=== PATIENT | female | born 1980 | race African-American/Black ===

== ENCOUNTER 2017-11-07 16:25 | Emergency (ER) | payer OTHER | END 2017-11-07 19:25 | disposition left against medical advice (07) | LOC: ERS 16:25 | DX: M54.5 Low back pain (principal); I45.6 Pre-excitation syndrome | CPT/HCPCS: 99283 ==

== ENCOUNTER 2017-11-09 09:52 | Emergency (ER) | payer OTHER ==
[2017-11-09] MEDS ORDERED: Dexamethasone 4 mg/ml Vial ONE (11:07)
[2017-11-09] MEDS ORDERED: Ketorolac Tromethamine 30 MG/ML VIAL ONE (11:07)
== END 2017-11-09 11:20 | disposition home or self-care (01) ==
LOC: ERS 09:52
DX: M54.5 Low back pain (principal)
CPT/HCPCS: 96372; J1100; J1885

== ENCOUNTER 2018-01-22 12:43 | Emergency (ER) | payer OTHER, SELFPAY ==
[2018-01-22 13:11] LABS: Bilirubin Negative (Negative); Blood, Urine Negative (Negative); Clarity CLEAR (Clear); Glucose, Urine (Dipstick) Negative (Negative); Leukocyte Negative (Negative); Nitrite Negative (Negative); Protein, Urine (Dipstick) Trace mg/dL (Neg-Trace); Specific Gravity, Urine 1.031 (1.002-1.036); Urobilinogen 0.2 mg/dL (0.2-1.0)
[2018-01-22 13:15] LABS: #Eosinphils 0.2 thou/uL (0.0-0.7); #Lymphocytes 1.7 thou/uL (1.20-3.40); #Monocytes 0.3 thou/uL (0.11-0.59); %Basophils 1.1 % (0.0-1.0); %Eosinophils 3.7 % (0.0-10.0); %Lymphocytes 40.3 % (21.0-51.0); %Monocytes 7.8 % (0.0-10.0); Hemoglobin 13.6 g/dL (12.0-16.0); Mean Corpuscular HGB CONC 34.1 g/dL (32.0-36.0); Mean Corpuscular Volume 90.7 fl (81.0-99.0); Mean Platelet Volume 6.6 fL (7.4-10.4); Platelet Count 249 thou/uL (130-400); RBC Distribution Width 12.3 % (11.5-14.5); White Blood Cell (WBC) Count 4.2 thou/uL (4.8-10.8)
[2018-01-22 13:34] LABS: ALT (SGPT) 25 U/L (8-55); AST (SGOT) 20 U/L (5-34); Albumin 3.9 g/dL (3.5-5.0); Alkaline Phosphatase 45 U/L (40-150); Anion Gap 12 mmol/L (10-20); BUN (Urea Nitrogen) 19 mg/dL (7.0-18.7); Bilirubin, Total 0.2 mg/dL (0.2-1.2); Calc. Creatinine Clearance 0 mL/min (70-130); Calcium 9.2 mg/dL (7.8-10.44); Carbon Dioxide 26 mmol/L (22-29); Chloride 104 mmol/L (98-107); Estimated GFR-MDRD 69; Globulin 3.6 g/dL (2.4-3.5); Glucose 78 mg/dL (70-105); Potassium 4.3 mmol/L (3.5-5.1); Protein, Total 7.5 g/dL (6.0-8.3); Sodium 138 mmol/L (136-145)
--- NOTE | 2018-01-22 16:42 | RAD ---
THORACIC SPINE 3 VIEWS: Date: 01/22/18 HISTORY: Back pain. FINDINGS/IMPRESSION: No fracture, subluxation, or bony destruction is identified. POS: FREDRICK
== END 2018-01-22 15:35 | disposition home or self-care (01) ==
LOC: ERS 12:43
DX: R10.12 Left upper quadrant pain (principal); I49.9 Cardiac arrhythmia, unspecified; I45.6 Pre-excitation syndrome
CPT/HCPCS: 36415; 72072; 80053; 81003; 83690; 85025

== ENCOUNTER 2018-03-24 17:09 | Emergency (ER) | payer SELFPAY ==
[2018-03-24 17:33] LABS: Bilirubin Negative (Negative); Blood, Urine Small (Negative); Clarity CLOUDY (Clear); Glucose, Urine (Dipstick) Negative (Negative); Leukocyte Negative (Negative); Nitrite Negative (Negative); Protein, Urine (Dipstick) Negative (Neg-Trace); Specific Gravity, Urine 1.021 (1.002-1.036); Urobilinogen 0.2 mg/dL (0.2-1.0)
[2018-03-24 17:35] LABS: Bacteria/HPF None Seen HPF (None Seen); Hyaline Casts/LPF 0-3 HYALINE CAST LPF (0-3 Hyaline); Pathc Cast-AUWi Flag 0.14 (0-2.49); WBC/HPF 0-3 HPF (0-3)
[2018-03-24 17:37] LABS: Yeast-AUWi Flag 42.7 (0-25.0)
[2018-03-24 17:45] LABS: Yeast-All Forms None Seen HPF (None Seen)
[2018-03-24] MEDS ORDERED: Ketorolac Tromethamine 30 MG/ML VIAL ONE (18:48)
[2018-03-24] MEDS ORDERED: Cyclobenzaprine 10 MG TAB ONE (18:48)
[2018-03-24] MEDS ORDERED: Dexamethasone 10 MG/ML VIAL ONE (18:48)
--- NOTE | 2018-03-24 20:17 | RAD ---
LUMBAR SPINE THREE VIEWS: 03/24/18 HISTORY: Low back pain. FINDINGS/IMPRESSION: No compression fracture is seen. There is minimal retrolisthesis of L5 over S1. Focal sclerosis invol ving the inferior aspect of the L5 vertebral body is stable since 01/30/17. POS: MARY
== END 2018-03-24 20:38 | disposition home or self-care (01) ==
LOC: ERS 17:09
DX: S39.012A Strain of muscle, fascia and tendon of lower back, initial encounter (principal); I45.6 Pre-excitation syndrome; X50.9XXA Other and unspecified overexertion or strenuous movements or postures, initial encounter
CPT/HCPCS: 72100; 81003; 81015; 96372; J1100; J1885

== ENCOUNTER 2018-08-23 16:34 | Emergency (ER) | payer SELFPAY | END 2018-08-23 17:17 | disposition home or self-care (01) | LOC: ERS 16:34 | DX: M54.42 Lumbago with sciatica, left side (principal) | CPT/HCPCS: 99283 ==

== ENCOUNTER 2018-09-20 10:10 | Emergency (ER) | payer SELFPAY ==
--- NOTE | 2018-09-20 11:47 | RAD ---
LEFT SHOULDER: Comparison: None. History: Left shoulder pain for three days. FINDINGS: Three views of the left shoulder shows no evidence of acute fracture or dislocation. No degenerative changes are seen. IMPRESSION: Unremarkable exam. POS: [facility]
[2018-09-20] MEDS ORDERED: Dexamethasone 4 MG TAB ONE (13:05)
[2018-09-20] MEDS ORDERED: Ketorolac Tromethamine 60 MG/2 ML VIAL ONE (13:05)
[2018-09-20] MEDS ORDERED: Diazepam 5 MG TAB ONE (13:05)
[2018-09-20] MEDS ORDERED: Lidocaine 5% Patch TD SCH (14:15)
== END 2018-09-20 14:22 | disposition home or self-care (01) ==
LOC: ERS 10:10
DX: M62.838 Other muscle spasm (principal); I45.6 Pre-excitation syndrome
CPT/HCPCS: 96372; J1885; J8540

== ENCOUNTER 2019-01-10 20:50 | Emergency (ER) | payer OTHER, SELFPAY | END 2019-01-10 21:40 | disposition home or self-care (01) | LOC: ERS 20:50 | DX: G89.29 Other chronic pain (principal); M54.2 Cervicalgia; I45.6 Pre-excitation syndrome; F32.9 Major depressive disorder, single episode, unspecified | CPT/HCPCS: 99283 ==

== ENCOUNTER 2019-02-16 16:18 | Emergency (ER) | payer SELFPAY ==
[2019-02-16 17:25] LABS: #Basophils 0.1 thou/uL (0.0-0.2); #Eosinphils 0.1 thou/uL (0.0-0.7); #Lymphocytes 2.5 thou/uL (1.20-3.40); #Monocytes 0.4 thou/uL (0.11-0.59); #Neutrophils 3.4 thou/uL (1.40-6.50); %Basophils 0.8 % (0.0-1.0); %Eosinophils 1.6 % (0.0-10.0); %Lymphocytes 38.9 % (21.0-51.0); %Monocytes 6.1 % (0.0-10.0); %Neutrophils 52.6 % (42.0-75.0); Hemoglobin 12.6 g/dL (12.0-16.0); Mean Corpuscular HGB CONC 32.8 g/dL (32.0-36.0); Mean Corpuscular Volume 88.5 fL (78.0-98.0); Mean Platelet Volume 6.7 fL (7.4-10.4); Platelet Count 262 thou/uL (130-400); RBC Distribution Width 12.3 % (11.5-14.5); Red Blood Cell (RBC) Count 4.33 mill/uL (4.20-5.40); White Blood Cell (WBC) Count 6.5 thou/uL (4.8-10.8)
[2019-02-16 17:48] LABS: ALT (SGPT) 11 U/L (8-55); AST (SGOT) 15 U/L (5-34); Albumin 3.8 g/dL (3.5-5.0); Alkaline Phosphatase 43 U/L (40-150); Anion Gap 13 mmol/L (10-20); BUN (Urea Nitrogen) 19 mg/dL (7.0-18.7); Bilirubin, Total 0.2 mg/dL (0.2-1.2); Calc. Creatinine Clearance 0 mL/min (70-130); Calcium 9.3 mg/dL (7.8-10.44); Carbon Dioxide 23 mmol/L (22-29); Chloride 107 mmol/L (98-107); Estimated GFR-MDRD 65; Globulin 3.3 g/dL (2.4-3.5); Glucose 106 mg/dL (70-105); Lipase 52 U/L (8-78); Protein, Total 7.1 g/dL (6.0-8.3); Sodium 139 mmol/L (136-145)
[2019-02-16 18:03] LABS: Bilirubin Negative (Negative); Blood, Urine Negative (Negative); Clarity CLEAR (Clear); Glucose, Urine (Dipstick) Negative (Negative); Leukocyte Negative (Negative); Nitrite Negative (Negative); Protein, Urine (Dipstick) Negative (Neg-Trace); Specific Gravity, Urine 1.026 (1.002-1.036); Urobilinogen 0.2 mg/dL (0.2-1.0); pH, Urine 5.5 (5.0-9.0)
[2019-02-16 18:05] LABS: Pregnancy Test - Urine (BHCG) Negative (Negative); Pregu Control Background? CLEAR/WHITE (CLR/WHITE); Pregu Control Bar Appear? YES (CONTROL BAR); Specific Gravity 1.026 (1.002-1.036)
[2019-02-18 20:01] LABS: Chlamydia by PCR Not Detected (NotDetected); GC by PCR Not Detected (NotDetected)
== END 2019-02-16 18:56 | disposition home or self-care (01) ==
LOC: ERS 16:18
DX: N76.0 Acute vaginitis (principal); I49.9 Cardiac arrhythmia, unspecified; I45.6 Pre-excitation syndrome
CPT/HCPCS: 36415; 80053; 81003; 81025; 83690; 85025; 87086; 87480; 87491; 87510; 87591; 87660; 99284

== ENCOUNTER 2019-03-19 09:06 | Emergency (ER) | payer OTHER, SELFPAY ==
--- NOTE | 2019-03-19 09:33 | RAD ---
Chest 2 views HISTORY: Chest pain. COMPARISON: 12/01/2007 and 03/28/2017. FINDINGS: Cardiac silhouette and pulmonary vasculature are unremarkable. Mediastinum is midline. Projecting over the lateral aspect of left apex is a rounded 0.6 cm nodular density not present on pr evious exams. Not well localized on the lateral view. No lobar consolidation, pleural fluid, or pneumothorax. IMPRESSION: Small nodule projecting over the lateral aspect of the left upper lobe on the frontal vie w. Possible extrinsic artifact. Please consider short-term follow-up chest radiograph in 4-6 months to evaluate for stability or reso lution. Code N.
== END 2019-03-19 11:40 | disposition home or self-care (01) ==
LOC: ERS 09:06
DX: B02.9 Zoster without complications (principal); I45.6 Pre-excitation syndrome
CPT/HCPCS: 71046

== ENCOUNTER 2019-08-22 13:18 | Emergency (ER) | payer OTHER ==
[2019-08-22 14:00] LABS: Bilirubin Negative (Negative); Blood, Urine Negative (Negative); Clarity Clear (Clear); Glucose, Urine (Dipstick) Normal (Negative); Leukocyte Negative Leu/uL (Negative); Nitrite Negative (Negative); Protein, Urine (Dipstick) Negative (Neg-Trace); Urobilinogen Normal mg/dL (Less than 2)
[2019-08-22 17:21] LABS: #Basophils 0.1 thou/uL (0.0-0.2); #Eosinphils 0.1 thou/uL (0.0-0.7); #Monocytes 0.4 thou/uL (0.11-0.59); #Neutrophils 3.4 thou/uL (1.40-6.50); %Basophils 0.8 % (0.0-1.0); %Eosinophils 2.3 % (0.0-10.0); %Lymphocytes 34.2 % (21.0-51.0); %Neutrophils 56.7 % (42.0-75.0); Hemoglobin 13.6 g/dL (12.0-16.0); Mean Corpuscular HGB CONC 33.4 g/dL (32.0-36.0); Mean Corpuscular Hemoglobin 29.7 pg (27.0-31.0); Mean Corpuscular Volume 88.8 fL (78.0-98.0); Mean Platelet Volume 6.8 fL (7.4-10.4); Platelet Count 247 thou/uL (130-400); RBC Distribution Width 12.4 % (11.5-14.5); Red Blood Cell (RBC) Count 4.58 mill/uL (4.20-5.40)
[2019-08-22] MEDS ORDERED: Morphine 4 MG/ML VIAL ONE (17:28)
[2019-08-22] MEDS ORDERED: Ondansetron PF 4 MG/2 ML Vial ONE (17:28)
[2019-08-22 17:43] LABS: ALT (SGPT) 9 U/L (8-55); AST (SGOT) 11 U/L (5-34); Alkaline Phosphatase 46 U/L (40-110); Anion Gap 12 mmol/L (10-20); BUN (Urea Nitrogen) 19 mg/dL (7.0-18.7); Bilirubin, Total 0.2 mg/dL (0.2-1.2); Calc. Creatinine Clearance 0 mL/min (70-130); Calcium 9.4 mg/dL (7.8-10.44); Carbon Dioxide 24 mmol/L (22-29); Chloride 105 mmol/L (98-107); Estimated GFR-MDRD 65; Globulin 3.3 g/dL (2.4-3.5); Glucose 95 mg/dL (70-105); Lipase 45 U/L (8-78); Potassium 4.1 mmol/L (3.5-5.1); Protein, Total 7.3 g/dL (6.0-8.3); Sodium 137 mmol/L (136-145)
[2019-08-22] MEDS ORDERED: ISOVUE-370 76%-LOCM 1 ML ONE (18:02)
--- NOTE | 2019-08-22 19:04 | CT ---
CT OF THE ABDOMEN AND PELVIS WITH CONTRAST: 08/22/19 COMPARISON: 12/03/15. HISTORY: Right sided abdominal pain for the past week. TECHNIQUE: Multiple contiguous axial images were obtained in a CT of the abdomen and pelvis with contrast. Coron al reformats were performed. FINDINGS: The right kidney is absent. The liver, gallbladder, adrenal glands, left kidney, spleen, and pancreas are unremarkable. No free air, free fluid, or stranding changes are seen in the abdomen or pelvis. T he patient appears to be status post hysterectomy as the uterus is not definitely seen. The large and small bowel are unremarkable. The appendix is normal. No abdominal or pelvic lymphadenopathy are see n. The osseous structures, visualized inferior thorax, and abdominal wall soft tissues are unremarkable. IMPRESSION: No evidence of acute intra-abdominal/pelvic abnormality. POS: C
== END 2019-08-22 20:00 | disposition home or self-care (01) ==
LOC: ERS 13:18
DX: R10.31 Right lower quadrant pain (principal); I49.9 Cardiac arrhythmia, unspecified; Z85.42 Personal history of malignant neoplasm of other parts of uterus; Z85.528 Personal history of other malignant neoplasm of kidney
CPT/HCPCS: 74177; 80053; 81003; 83690; 85025; 87086; 96361; 96374; 96375; J2270; J2405; Q9966

== ENCOUNTER 2019-11-29 13:16 | Emergency (ER) | payer OTHER ==
[2019-11-29 14:16] LABS: Bilirubin Negative (Negative); Blood, Urine Negative (Negative); Clarity Clear (Clear); Glucose, Urine (Dipstick) Normal (Negative); Leukocyte Negative Leu/uL (Negative); Nitrite Negative (Negative); Protein, Urine (Dipstick) Negative (Neg-Trace); Urobilinogen Normal mg/dL (Less than 2)
[2019-11-29] MEDS ORDERED: Morphine 4 MG/ML VIAL ONE (14:26)
--- NOTE | 2019-11-29 14:28 | CT ---
CT Stone Protocol HISTORY: Left flank pain. COMPARISON: 08/22/2019 study. FINDINGS: The lung bases are clear. The liver, spleen, pancreas and gallbladder regions appear normal. Right and left adrenal glands are normal. The right kidney has been removed. No evidence of any left renal calculi. There is no dilatation of the left collecting system. No ureteral calculi are appreciated. Extensive phleboliths seen within the pelvis. The appendix is normal. No pelvic lymphade nopathy. IMPRESSION: 1. Right nephrectomy change. 2. No acute findings of the abdomen or pelvis.
[2019-11-29 14:51] LABS: #Eosinphils 0.1 thou/uL (0.0-0.7); #Lymphocytes 1.7 thou/uL (1.20-3.40); #Monocytes 0.4 thou/uL (0.11-0.59); #Neutrophils 1.6 thou/uL (1.40-6.50); %Basophils 1.1 % (0.0-1.0); %Eosinophils 1.9 % (0.0-10.0); %Lymphocytes 44.5 % (21.0-51.0); %Neutrophils 41.5 % (42.0-75.0); Mean Corpuscular HGB CONC 32.6 g/dL (32.0-36.0); Mean Corpuscular Hemoglobin 28.9 pg (27.0-31.0); Mean Corpuscular Volume 88.7 fL (78.0-98.0); Mean Platelet Volume 7.1 fL (7.4-10.4); Platelet Count 254 thou/uL (130-400); RBC Distribution Width 12.6 % (11.5-14.5); Red Blood Cell (RBC) Count 4.51 mill/uL (4.20-5.40); White Blood Cell (WBC) Count 3.8 thou/uL (4.8-10.8)
[2019-11-29 15:09] LABS: ALT (SGPT) 10 U/L (8-55); AST (SGOT) 12 U/L (5-34); Albumin 3.9 g/dL (3.5-5.0); Alkaline Phosphatase 51 U/L (40-110); Anion Gap 10 mmol/L (10-20); BUN (Urea Nitrogen) 13 mg/dL (7.0-18.7); Bilirubin, Total 0.4 mg/dL (0.2-1.2); Calc. Creatinine Clearance 0 mL/min (70-130); Carbon Dioxide 28 mmol/L (22-29); Chloride 104 mmol/L (98-107); Estimated GFR-MDRD 72; Globulin 3.2 g/dL (2.4-3.5); Glucose 91 mg/dL (70-105); Lipase 23 U/L (8-78); Protein, Total 7.1 g/dL (6.0-8.3); Sodium 138 mmol/L (136-145)
== END 2019-11-29 15:45 | disposition home or self-care (01) ==
LOC: ERS 13:16
DX: R10.30 Lower abdominal pain, unspecified (principal); I49.9 Cardiac arrhythmia, unspecified
CPT/HCPCS: 74176; 80053; 81003; 83690; 85025; 96374; J2270

== ENCOUNTER 2019-12-17 19:48 | Emergency (ER) | payer OTHER, SELFPAY ==
[2019-12-17] MEDS ORDERED: Ketorolac Tromethamine 30 MG/ML VIAL ONE (21:13)
== END 2019-12-17 22:03 | disposition home or self-care (01) ==
LOC: ERS 19:48
DX: B02.9 Zoster without complications (principal); I49.9 Cardiac arrhythmia, unspecified
CPT/HCPCS: 96372; 99283; J1885

== ENCOUNTER 2020-05-27 10:06 | Emergency (ER) | payer SELFPAY | END 2020-05-27 10:52 | disposition home or self-care (01) | LOC: ERS 10:06 | DX: G56.03 Carpal tunnel syndrome, bilateral upper limbs (principal); I45.6 Pre-excitation syndrome | CPT/HCPCS: 99283 ==

== ENCOUNTER 2020-10-11 13:56 | Emergency (ER) | payer SELFPAY ==
--- NOTE | 2020-10-11 14:35 | ULT ---
Exam: Soft tissue ultrasound HISTORY: Palpable focus in the right shoulder x1 year. FINDINGS: Targeted sonographic imaging of the right shoulder was performed Static images are reviewe d. In the region of concern, there is a soft tissue echotexture measuring 1.4 by 2.1 x 0.7 cm. No significant vascular flow. Findings may represent a component of the rotator cuff. Nonemergent right shoulder MRI is recommended IMPRESSION: As above. Transcribed Date/Time: 10/11/2020 2:38 PM
== END 2020-10-11 15:16 | disposition home or self-care (01) ==
LOC: ERS 13:56
DX: D17.79 Benign lipomatous neoplasm of other sites (principal)
CPT/HCPCS: 76999

== ENCOUNTER 2021-02-26 20:12 | Emergency (ER) | payer BC, SELFPAY ==
[2021-02-26] MEDS ORDERED: Ketorolac Tromethamine 30 MG/ML VIAL ONE (20:33)
== END 2021-02-26 21:07 | disposition home or self-care (01) ==
LOC: ERS 20:12
DX: M25.462 Effusion, left knee (principal)
CPT/HCPCS: 96372; J1885

== ENCOUNTER 2021-04-09 07:43 | Emergency (ER) | payer SELFPAY ==
[2021-04-09] MEDS ORDERED: hydrOXYzine 25 MG TAB ONE ×2 (08:25→08:27)
== END 2021-04-09 08:30 | disposition home or self-care (01) ==
LOC: ERS 07:43
DX: Z20.7 Contact with and (suspected) exposure to pediculosis, acariasis and other infestations (principal)
CPT/HCPCS: 99282

== ENCOUNTER 2021-12-17 13:46 | Inpatient (IN) | payer BC, SELFPAY ==
[2021-12-17 14:12] LABS: #Eosinphils 0.1 thou/uL (0.0-0.7); #Lymphocytes 1.9 thou/uL (1.20-3.40); #Monocytes 1.2 thou/uL (0.11-0.59); #Neutrophils 9.9 thou/uL (1.40-6.50); %Basophils 0.3 % (0.0-1.0); %Eosinophils 0.6 % (0.0-10.0); %Lymphocytes 14.8 % (21.0-51.0); %Monocytes 8.9 % (0.0-10.0); %Neutrophils 75.4 % (42.0-75.0); Hemoglobin 12.8 g/dL (12.0-16.0); Mean Corpuscular HGB CONC 32.8 g/dL (32.0-36.0); Mean Corpuscular Volume 88.5 fL (78.0-98.0); Mean Platelet Volume 6.4 fL (7.4-10.4); Platelet Count 299 thou/uL (130-400); RBC Distribution Width 12.8 % (11.5-14.5); White Blood Cell (WBC) Count 13.1 thou/uL (4.8-10.8)
[2021-12-17 14:33] LABS: ALT (SGPT) 10 U/L (8-55); AST (SGOT) 12 U/L (5-34); Alkaline Phosphatase 55 U/L (40-110); Anion Gap 14 mmol/L (10-20); BUN (Urea Nitrogen) 14 mg/dL (7.0-18.7); Bilirubin, Total 0.6 mg/dL (0.2-1.2); Calc. Creatinine Clearance 0 mL/min (70-130); Carbon Dioxide 26 mmol/L (22-29); Chloride 103 mmol/L (98-107); Globulin 3.3 g/dL (2.4-3.5); Glucose 95 mg/dL (70-105); Potassium 4.4 mmol/L (3.5-5.1); Protein, Total 7.3 g/dL (6.0-8.3); Sodium 139 mmol/L (136-145)
[2021-12-17 15:16] LABS: Bilirubin Negative (Negative); Blood, Urine 2+ (Negative); Clarity Extra Turbid (Clear); Glucose, Urine (Dipstick) Normal (Negative); Ketone, Urine Negative (Negative); Leukocyte 500 Leu/uL (Negative); Nitrite Negative (Negative); Protein, Urine (Dipstick) 100 mg/dL (Neg-Trace); RBC/HPF Greater than 50 HPF (0-3); Specific Gravity, Urine 1.026 (1.002-1.036); Urobilinogen Normal mg/dL (Less than 2); WBC/HPF Greater than 50 HPF (0-3); pH, Urine 6.5 (5.0-9.0)
[2021-12-17 15:17] LABS: Bacteria/HPF 1+ HPF (None Seen); Pregnancy Test - Urine (BHCG) Negative (Negative)
[2021-12-17 15:18] LABS: Pregu Control Background? CLEAR/WHITE (CLR/WHITE); Pregu Control Bar Appear? YES (CONTROL BAR); Specific Gravity 1.026 (1.002-1.036)
[2021-12-17] MEDS ORDERED: cefTRIAXone\\ROCEPHIN 1 GM VIAL ONE (17:36)
[2021-12-17] MEDS ORDERED: Acetaminophen 500 MG TAB ONE (17:41)
[2021-12-17 18:48] LABS: SARS-CoV-2 PCR by NAA Not Detected (NotDetected)
[2021-12-17] MEDS ORDERED: Acetaminophen 325 MG TAB PO PRN (20:11)
[2021-12-17] MEDS ORDERED: Ondansetron ODT 4 MG TAB PO PRN (20:11)
[2021-12-17] MEDS ORDERED: Ondansetron PF 4 MG/2 ML Vial IVP PRN (20:11)
[2021-12-17] MEDS ORDERED: Acetaminophen 650 MG Suppository PR PRN (20:11)
[2021-12-17 21:31] VITALS: BMI 31.1
[2021-12-18] MEDS: Sodium Chloride 0.9% 1,000 ML IV SCH ×3 (05:49→15:14)
[2021-12-18 10:09] LABS: Anion Gap 12 mmol/L (10-20); BUN (Urea Nitrogen) 11 mg/dL (7.0-18.7); Calc. Creatinine Clearance 111 mL/min (70-130); Calcium 8.5 mg/dL (7.8-10.44); Carbon Dioxide 23 mmol/L (22-29); Chloride 107 mmol/L (98-107); Glucose 108 mg/dL (70-105); Potassium 3.9 mmol/L (3.5-5.1); Sodium 138 mmol/L (136-145)
[2021-12-18 10:16] LABS: #Eosinphils 0.2 thou/uL (0.0-0.7); #Lymphocytes 1.7 thou/uL (1.20-3.40); #Neutrophils 9.4 thou/uL (1.40-6.50); %Basophils 0.2 % (0.0-1.0); %Eosinophils 1.2 % (0.0-10.0); %Lymphocytes 13.7 % (21.0-51.0); %Neutrophils 76.9 % (42.0-75.0); Hemoglobin 11.5 g/dL (12.0-16.0); Mean Corpuscular HGB CONC 32.3 g/dL (32.0-36.0); Mean Corpuscular Volume 89.5 fL (78.0-98.0); Mean Platelet Volume 6.5 fL (7.4-10.4); Platelet Count 269 thou/uL (130-400); RBC Distribution Width 12.6 % (11.5-14.5); Red Blood Cell (RBC) Count 3.97 mill/uL (4.20-5.40); White Blood Cell (WBC) Count 12.2 thou/uL (4.8-10.8)
[2021-12-18] MEDS ORDERED: cefTRIAXone\\ROCEPHIN 1 GM in Sodium Chloride 0.9% 100 ML IVPB SCH (17:00)
[2021-12-19] MEDS: Sodium Chloride 0.9% 1,000 ML IV SCH (00:34)
[2021-12-19 13:08] VITALS: BP 113/74; TEMP 98.2
[2021-12-20] MEDS ORDERED: FLU VACC QS2021-22(6MOS UP)/PF 60 MCG/0.5 ML SYRINGE IM ONE (09:00)
== END 2021-12-19 13:28 | disposition home or self-care (01) | DRG 683 ==
LOC: ERS 13:46 → ERHOLD 17:39 → T4-A 21:23
PROVIDERS: ADMIT Family Medicine; ATTEND Internal Medicine
DX: N17.9 Acute kidney failure, unspecified (principal); N39.0 Urinary tract infection, site not specified; Z20.822 Contact with and (suspected) exposure to COVID-19; I45.6 Pre-excitation syndrome; B96.4 Proteus (mirabilis) (morganii) as the cause of diseases classified elsewhere; Z90.5 Acquired absence of kidney; Z85.528 Personal history of other malignant neoplasm of kidney; Z88.0 Allergy status to penicillin; Z79.899 Other long term (current) drug therapy; Z90.710 Acquired absence of both cervix and uterus; Z98.890 Other specified postprocedural states
CPT/HCPCS: 36415; 80048; 80053; 81003; 81015; 81025; 83605; 85025; 87040; 87077; 87086; 87186; 96365; 96366; J0696; J1956; J3490; J7050; U0003; U0005

== ENCOUNTER 2022-04-19 15:25 | Emergency (ER) | payer SELFPAY ==
[2022-04-19] MEDS ORDERED: Ketorolac Tromethamine 30 MG/ML VIAL ONE (17:50)
== END 2022-04-19 18:00 | disposition home or self-care (01) ==
LOC: ERS 15:25
DX: M72.2 Plantar fascial fibromatosis (principal); I45.6 Pre-excitation syndrome; Z85.528 Personal history of other malignant neoplasm of kidney; Z85.42 Personal history of malignant neoplasm of other parts of uterus
CPT/HCPCS: 96372; J1885

== ENCOUNTER 2022-07-31 07:03 | Emergency (ER) | payer OTHER, SELFPAY ==
[2022-07-31] MEDS ORDERED: Ketorolac Tromethamine 30 MG/ML VIAL ONE (07:35)
== END 2022-07-31 09:16 | disposition home or self-care (01) ==
LOC: ERS 07:03
DX: R07.89 Other chest pain (principal); V89.2XXA Person injured in unspecified motor-vehicle accident, traffic, initial encounter
CPT/HCPCS: 71045; 96372; J1885

== ENCOUNTER 2023-05-13 19:28 | Emergency (ER) | payer SELFPAY ==
[2023-05-13 21:34] LABS: Bacteria/HPF None Seen HPF (None Seen); Bilirubin Negative (Negative); Blood, Urine Trace (Negative); CAUTI Indications for Culture Dysuria,urgency,freq; Clarity Clear (Clear); Glucose, Urine (Dipstick) Normal (Negative); Ketone, Urine Negative (Negative); Leukocyte Negative Leu/uL (Negative); Nitrite Negative (Negative); Protein, Urine (Dipstick) Negative (Neg-Trace); RBC/HPF 0-3 HPF (0-3); Specific Gravity, Urine 1.021 (1.002-1.036); Urobilinogen Normal mg/dL (Less than 2); WBC/HPF 0-3 HPF (0-3)
[2023-05-13 21:35] LABS: Urine Culture Reflex No No
== END 2023-05-13 22:26 | disposition home or self-care (01) ==
LOC: ERS 19:28
DX: S30.811A Abrasion of abdominal wall, initial encounter (principal); X58.XXXA Exposure to other specified factors, initial encounter
CPT/HCPCS: 71045; 81001

== ENCOUNTER 2023-10-13 11:24 | Emergency (ER) | payer SELFPAY ==
[2023-10-13 12:24] LABS: #Eosinphils 0.1 thou/uL (0.0-0.7); #Monocytes 0.3 thou/uL (0.11-0.59); #Neutrophils 1.9 thou/uL (1.40-6.50); %Basophils 0.4 % (0.0-1.0); %Eosinophils 2.4 % (0.0-10.0); %Lymphocytes 51.1 % (21.0-51.0); %Monocytes 6.7 % (0.0-10.0); %Neutrophils 39.2 % (42.0-75.0); Hematocrit 38.4 % (36.0-47.0); Hemoglobin 12.7 g/dL (12.0-16.0); Mean Corpuscular HGB CONC 33.1 g/dL (32.0-36.0); Mean Corpuscular Hemoglobin 28.4 pg (27.0-31.0); Mean Corpuscular Volume 85.9 fl (78.0-98.0); Mean Platelet Volume 9.2 fL (7.4-10.4); Platelet Count 242 10x3/uL (130-400); RBC Distribution Width 14.1 % (11.5-14.5); Red Blood Cell (RBC) Count 4.47 mill/uL (4.20-5.40)
[2023-10-13 12:27] LABS: BHCG - Serum Negative (NEGATIVE); Pregs Control Background? CLEAR/WHITE (CLR/WHITE); Pregs Control Bar Appear? YES (CONTROL BAR)
[2023-10-13 12:32] LABS: Bacteria/HPF None Seen HPF (None Seen); Bilirubin Negative (Negative); Blood, Urine Negative (Negative); CAUTI Indications for Culture Dysuria,urgency,freq; Clarity Clear (Clear); Glucose, Urine (Dipstick) Normal (Negative); Ketone, Urine Negative (Negative); Leukocyte Negative Leu/uL (Negative); Nitrite Negative (Negative); Protein, Urine (Dipstick) Negative (Neg-Trace); RBC/HPF 0-3 HPF (0-3); Specific Gravity, Urine 1.028 (1.002-1.036); Urobilinogen Normal mg/dL (Less than 2); WBC/HPF 0-3 HPF (0-3)
[2023-10-13 12:36] LABS: ALT (SGPT) 27 U/L (8-55); AST (SGOT) 22 U/L (5-34); Albumin 4.2 g/dL (3.5-5.0); Alkaline Phosphatase 61 U/L (40-110); Anion Gap 13 mmol/L (10-20); BUN (Urea Nitrogen) 14 mg/dL (7.0-18.7); Bilirubin, Total 0.3 mg/dL (0.2-1.2); Calc. Creatinine Clearance 0 mL/min (70-130); Calcium 8.9 mg/dL (7.8-10.44); Carbon Dioxide 26 mmol/L (22-29); Chloride 105 mmol/L (98-107); Estimated GFR 61; Globulin 3.2 g/dL (2.4-3.5); Glucose 140 mg/dL (70-105); Lipase 27 U/L (8-78); Potassium 4.2 mmol/L (3.5-5.1); Protein, Total 7.4 g/dL (6.0-8.3); Sodium 140 mmol/L (136-145)
[2023-10-13 12:40] LABS: Urine Culture Reflex No No
[2023-10-13] MEDS ORDERED: Iopamidol-370 76% 500 ML MDV (1 ML CHARGE) ONE (13:14)
[2023-10-13] MEDS ORDERED: Morphine 2 MG/ML VIAL ONE (13:26)
== END 2023-10-13 15:28 | disposition home or self-care (01) ==
LOC: ERS 11:24
DX: R10.9 Unspecified abdominal pain (principal)
CPT/HCPCS: 36415; 74177; 80053; 81001; 83690; 84703; 85025; 96361; 96374; J2272; Q9967

== ENCOUNTER 2024-01-23 05:07 | Emergency (ER) | payer BC ==
[2024-01-23] MEDS ORDERED: Dicyclomine 20 MG TAB ONE (05:41)
[2024-01-23] MEDS ORDERED: Ondansetron PF 4 MG/2 ML Vial ONE (05:41)
[2024-01-23 05:50] LABS: #Eosinphils 0.1 thou/uL (0.0-0.7); #Monocytes 0.5 thou/uL (0.11-0.59); #Neutrophils 1.2 thou/uL (1.40-6.50); %Basophils 0.5 % (0.0-1.0); %Eosinophils 3.2 % (0.0-10.0); %Lymphocytes 59.6 % (21.0-51.0); %Monocytes 10.5 % (0.0-10.0); %Neutrophils 26.2 % (42.0-75.0); Hematocrit 38.2 % (36.0-47.0); Hemoglobin 12.6 g/dL (12.0-16.0); Mean Corpuscular Hemoglobin 28.2 pg (27.0-31.0); Mean Corpuscular Volume 85.5 fl (78.0-98.0); Mean Platelet Volume 8.7 fL (7.4-10.4); Platelet Count 254 10x3/uL (130-400); RBC Distribution Width 13.7 % (11.5-14.5); Red Blood Cell (RBC) Count 4.47 mill/uL (4.20-5.40); White Blood Cell (WBC) Count 4.4 10x3/uL (4.8-10.8)
[2024-01-23 06:18] LABS: ALT (SGPT) 22 U/L (8-55); AST (SGOT) 19 U/L (5-34); Albumin 3.8 g/dL (3.5-5.0); Alkaline Phosphatase 53 U/L (40-110); Anion Gap 14 mmol/L (10-20); BUN (Urea Nitrogen) 16 mg/dL (7.0-18.7); Bilirubin, Total 0.3 mg/dL (0.2-1.2); Calc. Creatinine Clearance 0 mL/min (70-130); Calcium 8.8 mg/dL (7.8-10.44); Carbon Dioxide 20 mmol/L (22-29); Chloride 110 mmol/L (98-107); Estimated GFR 67; Globulin 3.5 g/dL (2.4-3.5); Glucose 104 mg/dL (70-105); Lipase 33 U/L (8-78); Potassium 4.4 mmol/L (3.5-5.1); Protein, Total 7.3 g/dL (6.0-8.3); Sodium 140 mmol/L (136-145)
[2024-01-23 13:55] LABS: Campy jejuni + coli by PCR Negative (Negative); STEC Shiga Toxin 1+2 Negative (Negative); Salmonella spp. by PCR Negative (Negative); Shigella spp + EIEC by PCR Negative (Negative)
== END 2024-01-23 07:09 | disposition home or self-care (01) ==
LOC: ERS 05:07
DX: R11.2 Nausea with vomiting, unspecified (principal); R19.7 Diarrhea, unspecified
CPT/HCPCS: 80053; 83690; 85025; 87324; 87449; 87505; 96361; 96374; J2405

== ENCOUNTER 2024-07-21 07:50 | Emergency (ER) | payer BC ==
[2024-07-21 08:32] LABS: Bacteria/HPF None Seen HPF (None Seen); Bilirubin Negative (Negative); Blood, Urine Trace (Negative); CAUTI Indications for Culture Pelvic or flank pain; Clarity Clear (Clear); Glucose, Urine (Dipstick) Normal (Negative); Ketone, Urine Negative (Negative); Leukocyte Negative Leu/uL (Negative); Nitrite Negative (Negative); Protein, Urine (Dipstick) Negative (Neg-Trace); RBC/HPF 0-3 HPF (0-3); Specific Gravity, Urine 1.021 (1.002-1.036); Urobilinogen Normal mg/dL (Less than 2); WBC/HPF 0-3 HPF (0-3); pH, Urine 5.5 (5.0-9.0)
[2024-07-21 08:38] LABS: #Basophils Less than 0.03 10x3/uL (0.0-0.2); %Basophils 0.3 % (0.0-1.0); %Eosinophils 2.3 % (0.0-10.0); %Lymphocytes 58.1 % (21.0-51.0); %Neutrophils 32.3 % (42.0-75.0); Hematocrit 37.6 % (36.0-47.0); Hemoglobin 12.6 g/dL (12.0-16.0); Mean Corpuscular HGB CONC 33.5 g/dL (32.0-36.0); Mean Corpuscular Hemoglobin 28.5 pg (27.0-31.0); Mean Corpuscular Volume 85.1 fL (78.0-98.0); Mean Platelet Volume 8.8 fL (7.4-10.4); Platelet Count 243 10x3/uL (130-400); RBC Distribution Width 13.6 % (11.5-14.5); Red Blood Cell (RBC) Count 4.42 mill/uL (4.20-5.40)
[2024-07-21 08:42] LABS: Urine Culture Reflex No No
[2024-07-21 08:52] LABS: ALT (SGPT) 16 U/L (8-55); AST (SGOT) 16 U/L (5-34); Albumin 3.6 g/dL (3.5-5.0); Alkaline Phosphatase 56 U/L (40-110); Anion Gap 14 mmol/L (10-20); BUN (Urea Nitrogen) 16 mg/dL (7.0-18.7); Bilirubin, Total 0.3 mg/dL (0.2-1.2); Calc. Creatinine Clearance 0 mL/min (70-130); Carbon Dioxide 23 mmol/L (22-29); Chloride 108 mmol/L (98-107); Estimated GFR 66; Globulin 3.8 g/dL (2.4-3.5); Glucose 122 mg/dL (70-105); Potassium 3.7 mmol/L (3.5-5.1); Protein, Total 7.4 g/dL (6.0-8.3); Sodium 141 mmol/L (136-145)
[2024-07-21] MEDS ORDERED: Ketorolac Tromethamine 30 MG (1 mL) VIAL ONE (09:00)
== END 2024-07-21 11:31 | disposition home or self-care (01) ==
LOC: ERS 07:50
DX: R10.32 Left lower quadrant pain (principal)
CPT/HCPCS: 36415; 74176; 80053; 81001; 85025; 96372; J1885

== ENCOUNTER 2025-09-19 15:59 | Emergency (ER) | payer BC, SELFPAY ==
[2025-09-19 16:44] LABS: Pregnancy Test - Urine (BHCG) Negative (Negative); Pregu Control Background? CLEAR/WHITE (CLR/WHITE); Pregu Control Bar Appear? YES (CONTROL BAR)
[2025-09-19 16:45] LABS: CAUTI Indications for Culture Dysuria,urgency,freq; Glucose, Urine (Dipstick) Normal (Negative); Leukocyte Negative Leu/uL (Negative); Protein, Urine (Dipstick) 10 mg/dL (Neg-Trace); Specific Gravity, Urine 1.027 (1.002-1.036); WBC/HPF 0-3 HPF (0-3)
[2025-09-19 17:05] LABS: Bacteria/HPF 1+ HPF (None Seen)
[2025-09-19 17:06] LABS: Urine Culture Reflex No No
[2025-09-19 17:09] LABS: #Basophils Less than 0.03 10x3/uL (0.0-0.2); #Eosinophils 0.08 10x3/uL (0.0-0.7); #Monocytes 0.38 10x3/uL (0.11-0.59); #Neutrophils 2.43 10x3/uL (1.40-6.50); %Basophils 0.2 % (0.0-1.0); %Eosinophils 1.5 % (0.0-10.0); %Lymphocytes 44.9 % (21.0-51.0); %Monocytes 7.2 % (0.0-10.0); %Neutrophils 46.0 % (42.0-75.0); Hematocrit 38.5 % (36.0-47.0); Hemoglobin 12.2 g/dL (12.0-16.0); Mean Corpuscular Hemoglobin 27.4 pg (27.0-31.0); Mean Corpuscular Volume 86.3 fL (78.0-98.0); Platelet Count 255 10x3/uL (130-400); Red Blood Cell (RBC) Count 4.46 mill/uL (4.20-5.40); White Blood Cell (WBC) Count 5.28 10x3/uL (4.8-10.8)
[2025-09-19 17:29] LABS: ALT (SGPT) 13 U/L (Less than 34); AST (SGOT) 16 U/L (11-34); Albumin 3.7 g/dL (3.1-4.5); Alkaline Phosphatase 56 U/L (40-110); Anion Gap 9 mmol/L (10-20); BUN (Urea Nitrogen) 16 mg/dL (7.0-18.7); Bilirubin, Total 0.2 mg/dL (0.3-1.2); Calc. Creatinine Clearance 0 mL/min (70-130); Calcium 9.4 mg/dL (7.8-10.44); Carbon Dioxide 26 mmol/L (22-29); Chloride 108 mmol/L (98-107); Globulin 3.6 g/dL (2.4-3.5); Glucose 132 mg/dL (70-105); Potassium 3.7 mmol/L (3.5-5.1); Sodium 139 mmol/L (136-145)
[2025-09-19] MEDS ORDERED: Ondansetron PF 4 MG/2 ML Vial ONE (18:20)
== END 2025-09-19 19:00 | disposition home or self-care (01) ==
LOC: ERS 15:59
DX: K92.1 Melena (principal); R31.9 Hematuria, unspecified
CPT/HCPCS: 36415; 74176; 76705; 80053; 81001; 81025; 83605; 85025; 87040; 96374; 96375; J2270; J2405